=== PATIENT | female | born 1950 | race Caucasian/White ===

== ENCOUNTER 2018-07-31 08:48 | Emergency (ER) | payer MEDICARE, OTHER ==
[~2018-07-31] VITALS: Ht 162.6 cm; Wt 81.6 kg
[2018-07-31 08:52] VITALS: BP 158/66
[2018-07-31] MEDS ORDERED: IV NORMAL SALINE 1,000ML 1,000 ML IV ONE (09:15)
--- NOTE | 2018-07-31 09:21 | PHYS DOC ---
Past History Past Medical History: Cancer, Diabetes, Hypertension Past Surgical History: Knee Replacement Alcohol Use: None Drug Use: None Adult General Chief Complaint Chief Complaint: BACK PAIN OR INJURY HPI HPI 67-year-old female presents with right mid back pain. The patient had a laminectomy with this compression at L4-5 2 weeks ago in [place], but was cleared to travel. Patient has been doing well until yesterday. Patient woke up in the morning with right sided mid back pain that she describes as a deep cramping sensation. The pain is constant but has increases in intensity from time to time. It seems to be worse with movement. She has troponin muscle relaxers for her surgery but states that they don't take away the pain, but to help her relax some. She doesn't believe this is related to her surgery and is concerned that maybe going on. She has not had any change in her bowel or bladder habits. She denies fever or chills. She has no history of kidney stones. She denies numbness, tingling, change in sensation in her legs. No loss of bowel or bladder. Review of Systems Review of Systems Constitutional: Denies fever or chills [] Eyes: Denies change in visual acuity, redness, or eye pain [] HENT: Denies nasal congestion or sore throat [] Respiratory: Intermittent cough without shortness of breath [] Cardiovascular: No additional information not addressed in HPI [] GI: Denies abdominal pain, nausea, vomiting, bloody stools or diarrhea [] : Denies dysuria or hematuria [] Musculoskeletal: Right-sided thoracic pain[] Integument: Denies rash or skin lesions [] Neurologic: Denies headache, focal weakness or sensory changes [] Endocrine: Denies polyuria or polydipsia [] All other systems were reviewed and found to be within normal limits, except as documented in this note. Current Medications Current Medications Current Medications Medications (Trade) Dose Ordered Sig/Hannah Start Time Stop Time Status Last Admin Dose Admin Sodium Chloride 1,000 ml @ 1,000 mls/hr 1X ONCE 07/31/18 09:15 07/31/18 10:14 UNV Physical Exam Physical Exam Constitutional: Well developed, well nourished, no acute distress, non-toxic appearance. [] HENT: Normocephalic, atraumatic, bilateral external ears normal, oropharynx moist, no oral exudates, nose normal. [] Eyes: PERRLA, EOMI, conjunctiva normal, no discharge. [] Neck: Normal range of motion, no tenderness, supple, no stridor. [] Cardiovascular:Heart rate regular rhythm, no murmur [] Lungs & Thorax: Bilateral breath sounds clear to auscultation [] Abdomen: Bowel sounds normal, soft, no tenderness, no masses, no pulsatile masses. [] Skin: Warm, dry, no erythema, no rash. [] Back: Right-sided paraspinal muscle spasm and tenderness on the right T8-T12. [ ] Extremities: No tenderness, no cyanosis, no clubbing, ROM intact, no edema. [] Neurologic: Alert and oriented X 3, normal motor function, normal sensory function, no focal deficits noted. [] Psychologic: Affect normal, judgement normal, mood normal. [] Current Patient Data Vital Signs Vital Signs Date Time Temp Pulse Resp B/P (MAP) Pulse Ox O2 Delivery O2 Flow Rate FiO2 07/31/18 08:52 97.3 54 16 98 Room Air EKG EKG [] Radiology/Procedures Radiology/Procedures [] Course & Med Decision Making Course & Med Decision Making Pertinent Labs and Imaging studies reviewed. (See chart for details) I gave the patient 2 mg of morphine IV and 5 mg of Valium by mouth. Self significantly with her pain. The patient's labs are unremarkable except for slightly elevated white count. Her urine is negative. I believe this could be referred pain from her surgery. Think she just got behind on the pain. She has pain medication and muscle relaxers already and will be more aggressive about taking them before her pain gets to this level. She is stable for discharge at this time. [] Dragon Disclaimer Dragon Disclaimer This electronic medical record was generated, in whole or in part, using a voice recognition dictation system. Departure Departure: Impression: Primary Impression: Thoracic back pain Disposition: 01 HOME, SELF-CARE Condition: IMPROVED Referrals: NON,STAFF (PCP) Patient Instructions: Thoracic Strain, [id number] Problem Qualifiers Primary Impression: Thoracic back pain Chronicity: acute Back pain laterality: right Qualified Codes: M54.6 - Pain in thoracic spine VINICIUS TAM DO Jul 31, 2018 09:21
[2018-07-31 09:45] LABS: RED BLOOD COUNT 4.26 x10^6/uL (3.50-5.40); WHITE BLOOD COUNT 13.7 x10^3/uL (4.0-11.0)
[2018-07-31 09:46] LABS: HEMOGLOBIN 12.6 g/dL (12.0-15.5); MEAN CORPUSCULAR HEMOGLOBIN 30 pg (25-35); MEAN CORPUSCULAR HGB CONC 33 g/dL (31-37); MEAN CORPUSCULAR VOLUME 89 fL (79-100); PLATELET COUNT 190 x10^3/uL (140-400); RED CELL DISTRIBUTION WIDTH 13.1 % (11.5-14.5)
--- NOTE | 2018-07-31 09:46 | RAD ---
Examination: 3 views of the thoracic spine HISTORY: History of severe back pain COMPARISON: None available FINDINGS: The thoracic vertebral body heights are maintained. No evidence of listhesis identified. Moderate degenerative changes thoracic spine. IMPRESSION: Moderate degenerative changes thoracic spine. Electronically signed by: Tremaine Richter MD (07/31/2018 9:43 AM) [id number]
[2018-07-31] MEDS ORDERED: KETOROLAC 30 MG/ML VIAL. IV ONE (10:00)
[2018-07-31 10:32] LABS: % BASOS 1 % (0-3); % EOS 1 % (0-5); % LYMPHS 15 % (24-48); % MONOS 2 % (0-10); % SEGS 81 % (35-66); PLT ESTIMATE ADEQUATE (ADEQUATE)
[2018-07-31 10:38] LABS: ALBUMIN 3.4 g/dL (3.4-5.0); ALBUMIN/GLOBULIN RATIO 0.9 (1.0-1.7); CALCIUM 9.1 mg/dL (8.5-10.1); CREATININE 0.8 mg/dL (0.6-1.0); GFR 71.1; POTASSIUM 3.8 mmol/L (3.5-5.1); TOTAL BILIRUBIN 0.5 mg/dL (0.2-1.0)
[2018-07-31] MEDS ORDERED: MORPHINE SULFATE 4 MG/ML DISP.SYRIN. IV ONE (10:50)
[2018-07-31] MEDS ORDERED: ONDANSETRON PF 4 MG/2 ML VIAL. IV ONE (10:50)
[2018-07-31] MEDS ORDERED: diazePAM 5 MG TABLET PO ONE (10:50)
[2018-07-31 12:36] LABS: BACTERIA,URINE 0 /HPF (0-FEW); BILIRUBIN,URINE NEG (NEG); CLARITY,URINE CLEAR; COLOR,URINE STRAW; GLUCOSE,URINE NEG (NEG); NITRITE,URINE NEG (NEG); RBC,URINE OCC /HPF (0-2); SQUAMOUS EPITHELIAL CELL,UR FEW /LPF; UROBILINOGEN,URINE 0.2 mg/dL (0.2 mg/dL); WBC,URINE 0 /HPF (0-4)
== END 2018-07-31 13:08 | disposition home or self-care (01) ==
LOC: ER 08:48
DX: M54.6 Pain in thoracic spine (principal); E11.9 Type 2 diabetes mellitus without complications; I10 Essential (primary) hypertension; D72.829 Elevated white blood cell count, unspecified; Z98.890 Other specified postprocedural states
CPT/HCPCS: 36415; 72072; 80053; 81001; 85007; 85025; 96374; 96375; 99284; J1885; J2270; J2405; J7030